=== PATIENT | female | born 1985 | race Caucasian/White ===

== ENCOUNTER 2021-05-06 09:05 | Inpatient (IN) | payer MEDICAID ==
[~2021-05-06] VITALS: Ht 157.5 cm; Wt 136.1 kg
[2021-05-06] MEDS ORDERED: ONDANSETRON HCL 4MG/2ML INJ IV STA (09:19)
[2021-05-06] MEDS ORDERED: KETOROLAC 30MG/ML VIAL IV STA (09:26)
[2021-05-06] MEDS ORDERED: ACETAMINOPHEN 325MG TABLET PO STA (09:26)
[2021-05-06] MEDS ORDERED: SODIUM CHLORIDE 0.9% 1,000 ML IV ONE (09:30)
[2021-05-06 09:55] LABS: BASOPHILS % 0.2 % (0.0-2.0); EOSINOPHILS % 0.4 % (0.0-5.0); HEMATOCRIT. 36.2 % (36.0-48.0); LYMPHOCYTES % 16.6 % (20.0-50.0); MEAN CORPUSCULAR HEMOGLOBIN 26.3 pg (28.0-32.0); MEAN CORPUSCULAR VOLUME 79.3 fL (81.0-99.0); MEAN PLATELET VOLUME 7.3 fl (7.4-10.4); MONOCYTES % 8.7 % (2.0-8.0); NEUTROPHILS % 74.1 % (40.0-76.0); PLATELET 291 x1000/uL (130-400); RED BLOOD CELL COUNT 4.57 mill/uL (4.2-5.4); RED CELL DISTRIBUTION WIDTH 15.2 % (11.6-14.6)
[2021-05-06 09:57] LABS: CLARITY URINE TURBID (CLEAR); COLOR URINE YELLOW (YELLOW); KETONES URINE NEGATIVE (NEGATIVE); LEUKOCYTE ESTERASE URINE 3+ (NEGATIVE); NITRITE URINE NEGATIVE (NEGATIVE); OCCULT BLOOD URINE 2+ (NEGATIVE); PROTEIN URINE 1+ (NEGATIVE); SPECIFIC GRAVITY URINE 1.013 (1.005-1.030); UROBILINOGEN URINE 0.2 E.U./dL (0.2-1.0)
[2021-05-06 10:08] LABS: CHLORIDE 105 mEq/L (98-107)
[2021-05-06] MEDS ORDERED: CEFTRIAXONE 2 G PREMIX 50 ML IV SCH (11:00)
[2021-05-06] MEDS ORDERED: TRAMADOL 50MG TABLET PO PRN (15:15)
[2021-05-06] MEDS ORDERED: DEXTROSE 50% WATER 50ML SYRINGE IV PRN (15:15)
[2021-05-06] MEDS: BLOOD SUGAR DIAGNOSTIC STRIP TEST SCH ×2 (17:28→20:43)
[2021-05-06] MEDS: INSULIN LISPRO 100 UNITS/ML SUBCUT SCH ×2 (17:53→20:43)
[2021-05-06 18:00] VITALS: BP 172/86
[2021-05-06 18:43] VITALS: BP 172/86
[2021-05-06] MEDS ORDERED: LOPHC2 MT (18:46)
[2021-05-06] MEDS: ACETAMINOPHEN 325MG TABLET PO PRN (19:15)
[2021-05-06 20:00] VITALS: BP 173/89
[2021-05-06] MEDS: CLONIDINE 0.1MG TABLET PO PRN (20:43)
[2021-05-07] VITALS: BP 121/61
[2021-05-07 04:00] VITALS: BP 119/79
[2021-05-07] MEDS: BLOOD SUGAR DIAGNOSTIC STRIP TEST SCH ×4 (06:45→21:10)
[2021-05-07] MEDS: INSULIN LISPRO 100 UNITS/ML SUBCUT SCH ×4 (07:50→21:35)
[2021-05-07 08:00] VITALS: BP 157/99
[2021-05-07] MEDS: ACETAMINOPHEN 325MG TABLET PO PRN ×2 (10:12→21:34)
[2021-05-07 12:00] VITALS: BP 138/71
[2021-05-07 16:00] VITALS: BP 130/72
[2021-05-07 20:00] VITALS: BP 174/96
[2021-05-07 20:12] LABS: BASOPHILS % 0.2 % (0.0-2.0); HEMATOCRIT. 36.1 % (36.0-48.0); HEMOGLOBIN. 11.8 g/dL (12.0-16.0); MEAN CORPUSCULAR HEMOGLOBIN 26.6 pg (28.0-32.0); MEAN CORPUSCULAR VOLUME 81.2 fL (81.0-99.0); MEAN PLATELET VOLUME 7.8 fl (7.4-10.4); MONOCYTES % 8.5 % (2.0-8.0); NEUTROPHILS % 67.3 % (40.0-76.0); PLATELET 296 x1000/uL (130-400); RED BLOOD CELL COUNT 4.44 mill/uL (4.2-5.4); RED CELL DISTRIBUTION WIDTH 15.6 % (11.6-14.6)
[2021-05-07 20:19] LABS: CHLORIDE 104 mEq/L (98-107)
[2021-05-07] MEDS: CLONIDINE 0.1MG TABLET PO PRN (21:35)
[2021-05-08] VITALS: BP 140/82
[2021-05-08 04:00] VITALS: BP 130/81
[2021-05-08 05:46] LABS: BASOPHILS % 0.2 % (0.0-2.0); EOSINOPHILS % 2.1 % (0.0-5.0); HEMATOCRIT. 37.8 % (36.0-48.0); HEMOGLOBIN. 12.2 g/dL (12.0-16.0); LYMPHOCYTES % 30.5 % (20.0-50.0); MEAN CORPUSCULAR VOLUME 80.8 fL (81.0-99.0); MEAN PLATELET VOLUME 8.3 fl (7.4-10.4); MONOCYTES % 9.8 % (2.0-8.0); NEUTROPHILS % 57.4 % (40.0-76.0); PLATELET 306 x1000/uL (130-400); RED BLOOD CELL COUNT 4.67 mill/uL (4.2-5.4); RED CELL DISTRIBUTION WIDTH 15.8 % (11.6-14.6)
[2021-05-08 06:12] LABS: CHLORIDE 105 mEq/L (98-107)
[2021-05-08] MEDS: INSULIN LISPRO 100 UNITS/ML SUBCUT SCH ×2 (07:50→12:50)
[2021-05-08 08:00] VITALS: BP 140/78
[2021-05-08] MEDS: BLOOD SUGAR DIAGNOSTIC STRIP TEST SCH ×2 (08:03→13:13)
[2021-05-08 12:00] VITALS: BP 138/76
[2021-05-08] MEDS ORDERED: LEVO500T89 MT (12:17)
[2021-05-08 13:05] VITALS: BP 138/76
== END 2021-05-08 13:50 | disposition home or self-care (01) | DRG 720 ==
LOC: ER 09:05 → 6EST 13:13 → EDBEDREQTM 13:40 → EDBEDREQ 13:40 → ENRESERV 16:23
PROVIDERS: ADMIT Family Medicine Adult Medicine; ATTEND Family Medicine Adult Medicine
DX: A41.9 Sepsis, unspecified organism (principal); I10 Essential (primary) hypertension; N10 Acute pyelonephritis; Z20.822 Contact with and (suspected) exposure to COVID-19; N20.0 Calculus of kidney; Z82.49 Family history of ischemic heart disease and other diseases of the circulatory system; Z87.891 Personal history of nicotine dependence
CPT/HCPCS: 36415; 74176; 80048; 80053; 81003; 82962; 83036; 83605; 85025; 87426; 93005; 99285; C9803; J0696; J1815; J1885; J2405; J7030; U0003; U0005